=== PATIENT | female | born 1940 | race Caucasian/White ===

== ENCOUNTER 2022-11-16 11:20 | Emergency (ER) | payer OTHER ==
[~2022-11-16] VITALS: Ht 154.9 cm; Wt 62.6 kg
[~2022-11-16 11:20] MED LIST: ACTONEL
[2022-11-16 11:23] VITALS: BP_SYST 138
[2022-11-16] MEDS ORDERED: IPRATROPIUM BROM 0.5 MG/2.5 ML VIAL.NEB (ATROVENT) INH ONE (12:00)
[2022-11-16] MEDS ORDERED: IPRATROPIUM/ALBUTEROL SULFATE 3 ML AMPUL.NEB (DUONEB) INH ONE (12:00)
[2022-11-16] MEDS ORDERED: ALBUTEROL SULFATE 0.083% 2.5 MG/3 ML VIAL.NEB INH ONE (12:00)
--- NOTE | 2022-11-16 12:09 | NUR ---
RESP TECH GIVEN RESP TREATMENT IN [facility]ALLWAY
--- NOTE | 2022-11-16 12:10 | NUR ---
Pt brought by self, A&Ox4, pt presents to ER with cough, congestion x 4 days, skin pink and warm, cap refill <3, VSS, respirations even and unlabored.
--- NOTE | 2022-11-16 12:25 | NUR ---
Dr Ramirez evaluating patient at bedside
[2022-11-16] MEDS ORDERED: LEVO-62 PO (13:11)
[2022-11-16] MEDS ORDERED: ALBMDI INH (13:11)
[2022-11-16 13:51] VITALS: BP_SYST 138
--- NOTE | 2022-11-16 13:51 | NUR ---
Patient given written and verbal discharge instructions and verbalizes understanding. ER MD discussed with patient the results and treatment provided. Patient in stable condition. ID arm band removed. No Rx given. Patient educated on pain management and to follow up with PMD. Pain Scale 0/10 . Opportunity for questions provided and answered. Medication side effect fact sheet provided.
== END 2022-11-16 13:51 | disposition home or self-care (01) ==
LOC: SED 11:20
DX: J18.9 Pneumonia, unspecified organism (principal); R05.9 Cough, unspecified; R09.81 Nasal congestion; J45.909 Unspecified asthma, uncomplicated; Z79.899 Other long term (current) drug therapy; Z20.822 Contact with and (suspected) exposure to COVID-19
CPT/HCPCS: 36415; 71045; 94640; 94760; 99284; 87804 ×2; 87426; J7613

== ENCOUNTER 2024-04-11 19:44 | Emergency (ER) | payer OTHER ==
[~2024-04-11] VITALS: Ht 154.9 cm; Wt 63.0 kg
[~2024-04-11 19:44] MED LIST changes: +ALBMDI INH; +LEVO-62 PO
[2024-04-11 19:58] VITALS: BP_SYST 154; PULSE 68; RESP 20; TEMP 97.9; O2SAT 97
[2024-04-11] MEDS: ASPIRIN 81 MG TAB.CHEW PO ONE (20:56)
[2024-04-11 20:57] VITALS: O2SAT 98
[2024-04-11 21:08] LABS: BASOPHILS # (AUTO) 0.1 K/uL (0.0-0.2); BASOPHILS % (AUTO) 0.6 % (0.0-2.0); EOSINOPHILS # (AUTO) 0.3 K/uL (0.0-0.4); EOSINOPHILS % (AUTO) 3.2 % (0.0-4.0); HEMATOCRIT 28.5 % (36-48); LYMPHOCYTES # (AUTO) 1.6 K/uL (1.0-5.5); LYMPHOCYTES % (AUTO) 16.7 % (20.5-51.5); MEAN CORPUSCULAR HEMOGLOBIN 32 pg (27-31); MEAN CORPUSCULAR HGB CONC 35 % (32-36); MEAN CORPUSCULAR VOLUME 92 fL (79.0-98.0); MONOCYTES # (AUTO) 0.9 K/uL (0.0-1.0); MONOCYTES % (AUTO) 9.8 % (1.7-9.3); NEUTROPHILS # (AUTO) 6.6 K/uL (1.8-7.7); NEUTROPHILS % (AUTO) 69.7 % (40.0-70.0); PLATELET COUNT (AUTO) 226 K/uL (130-430); RED CELL DISTRIBUTION WIDTH 13.1 % (9.0-15.0); WHITE BLOOD COUNT (AUTO) 9.5 K/uL (4.8-10.8)
[2024-04-11 21:24] LABS: ANION GAP 7 (5-15); CALCIUM 9.7 mg/dL (8.4-11.0); CARBON DIOXIDE 24 mmol/L (23-29); CHLORIDE 101 mmol/L (98-107); CREATININE 1.39 mg/dL (0.55-1.30); GLUCOSE 104 mg/dL (74-106); POTASSIUM 4.9 mmol/L (3.5-5.1); SODIUM SERUM 132 mmol/L (136-145); UREA NITROGEN, BLOOD 27 mg/dL (8-21)
[2024-04-11 22:00] LABS: BILIRUBIN,URINE NEGATIVE (NEGATIVE); BLOOD, URINE NEGATIVE (NEGATIVE); CLARITY/URINE CLEAR (CLEAR); COLOR,URINE YELLOW (YELLOW); GLUCOSE,URINE NEGATIVE (NEGATIVE); KETONES,URINE NEGATIVE (NEGATIVE); LEUKOCYTE ESTERASE ,URINE NEGATIVE (NEGATIVE); NITRITE, URINE NEGATIVE (NEGATIVE); PROTEIN URINE NEGATIVE (NEGATIVE); UROBILINOGEN,URINE 0.2 (0.2-1.0)
[2024-04-11 23:21] VITALS: BP_SYST 132; PULSE 86; RESP 18; TEMP 98.7
== END 2024-04-11 23:15 | disposition home or self-care (01) ==
LOC: SED 19:44
DX: R42 Dizziness and giddiness (principal); I10 Essential (primary) hypertension; J44.9 Chronic obstructive pulmonary disease, unspecified; J45.909 Unspecified asthma, uncomplicated; Z87.310 Personal history of (healed) osteoporosis fracture; Z79.899 Other long term (current) drug therapy; Z79.2 Long term (current) use of antibiotics
CPT/HCPCS: 36415; 70450-TC; 71045; 80048; 81001; 81003; 83880; 84484; 85025; 93005; 99285